=== PATIENT | female | born 2005 | race Caucasian/White ===

== ENCOUNTER 2023-07-23 20:03 | Emergency (ER) | payer MEDICAID ==
[~2023-07-23] VITALS: Ht 160 cm; Wt 47.0 kg
[2023-07-23 20:27] VITALS: O2SAT 100
[2023-07-23 21:56] LABS: BASOPHILS % 0.5 % (0.0-2.0); EOSINOPHILS % 0.8 % (0.0-5.0); HEMOGLOBIN. 10.4 g/dL (12.0-16.0); LYMPHOCYTES % 32.3 % (20.0-50.0); MEAN CORPUSCULAR HEMOGLOBIN 32.8 pg (28.0-32.0); MEAN CORPUSCULAR HGB CONC 35.9 g/dL (31.0-37.0); MEAN CORPUSCULAR VOLUME 91.2 fL (81.0-99.0); MEAN PLATELET VOLUME 8.2 fl (7.4-10.4); MONOCYTES % 4.9 % (2.0-8.0); NEUTROPHILS % 61.5 % (40.0-76.0); PLATELET 276 x1000/uL (130-400); RED BLOOD CELL COUNT 3.17 mill/uL (4.2-5.4); RED CELL DISTRIBUTION WIDTH 16.9 % (11.6-14.6); WHITE BLOOD COUNT 6.3 x1000/uL (4.5-11.0)
[2023-07-23 22:00] LABS: CARBON DIOXIDE 25 mEq/L (21-32); CHLORIDE 107 mEq/L (98-107); POTASSIUM 3.5 mEq/L (3.5-5.1); SODIUM 137 mEq/L (136-145)
[2023-07-23 22:01] LABS: CALCIUM 9.9 mg/dL (8.7-10.4)
[2023-07-23 22:05] LABS: CREATININE 0.5 mg/dL (0.6-1.0); GLUCOSE 90 mg/dL (70-105)
[2023-07-23 22:06] LABS: CLARITY URINE CLEAR (CLEAR); COLOR URINE YELLOW (YELLOW); GLUCOSE URINE NEGATIVE (NEGATIVE); KETONES URINE NEGATIVE (NEGATIVE); LEUKOCYTE ESTERASE URINE NEGATIVE (NEGATIVE); NITRITE URINE NEGATIVE (NEGATIVE); OCCULT BLOOD URINE NEGATIVE (NEGATIVE); PH URINE 7.5 (4.5-8.0); PROTEIN URINE NEGATIVE (NEGATIVE); SPECIFIC GRAVITY URINE 1.004 (1.005-1.030)
[2023-07-23 22:07] LABS: ALANINE AMINOTRANSFERASE < 7 IU/L (10-49); ALBUMIN 4.5 g/dL (3.2-4.8); ASPARTATE AMINOTRANSFERASE 18 IU/L (<34)
[2023-07-23 22:08] LABS: BILIRUBIN TOTAL 1.3 mg/dL (0.1-1.0)
[2023-07-23 22:18] LABS: UREA NITROGEN BLOOD < 5 mg/dL (9-23)
[2023-07-23] MEDS ORDERED: PREN-52 MT (23:14)
[2023-07-24 00:05] VITALS: BP 102/54; PULSE 78; RESP 16; TEMP 98.4
== END 2023-07-24 00:06 | disposition home or self-care (01) ==
LOC: ER 20:03
DX: O26.891 Other specified pregnancy related conditions, first trimester (principal); Z3A.08 8 weeks gestation of pregnancy
CPT/HCPCS: 36415; 76801; 80053; 81003; 81025; 84702; 85025; 99284